=== PATIENT | male | born 1965 | race African-American/Black ===

== ENCOUNTER 2016-09-04 12:32 | Emergency (ER) | payer MEDICAID ==
[~2016-09-04] VITALS: Ht 172.7 cm; Wt 105.0 kg
[~2016-09-04 12:32] MED LIST: FAMO40TA70 PO; Folic Acid PO; LEVO500T2 PO; Multivitamins,Ther W-Minerals PO
[2016-09-04 12:36] VITALS: BP 155/120
== END 2016-09-04 17:43 | disposition left against medical advice (07) ==
LOC: ER 17:30
DX: Z53.21 Procedure and treatment not carried out due to patient leaving prior to being seen by health care provider (principal)

== ENCOUNTER 2017-02-08 07:11 | Emergency (ER) | payer MEDICAID ==
[~2017-02-08] VITALS: Ht 177.8 cm; Wt 100.0 kg
[2017-02-08] MEDS ORDERED: MORPHINE SULFATE 4 MG/ML CPJ (NOT FOR IM USE) IV STA (07:30)
[2017-02-08] MEDS ORDERED: ONDANSETRON HCL 4MG/2ML VIAL IV STA (07:30)
[2017-02-08] MEDS ORDERED: SODIUM CHLORIDE 0.9% 1,000 ML IV ONE (07:30)
[2017-02-08] MEDS ORDERED: FAMOTIDINE 20MG/2ML VIAL IV STA (07:30)
[2017-02-08] MEDS ORDERED: MIDAZOLAM HCL 2 MG/2 ML VIAL IV ONE (07:30)
[2017-02-08 08:12] LABS: BASOPHILS % 0.9 % (0.0-2.0); EOSINOPHILS % 1.8 % (0.0-5.0); HEMATOCRIT. 45.3 % (42.0-52.0); HEMOGLOBIN. 15.5 g/dL (14.0-18.0); LYMPHOCYTES % 31.4 % (20.0-50.0); MEAN CORPUSCULAR HEMOGLOBIN 31.4 pg (28.0-32.0); MEAN CORPUSCULAR VOLUME 91.5 fL (80.0-94.0); MEAN PLATELET VOLUME 9.1 fl (7.4-10.4); MONOCYTES % 8.1 % (2.0-8.0); NEUTROPHILS % 57.8 % (40.0-76.0); PLATELET 308 x1000/uL (130-400); RED BLOOD CELL COUNT 4.95 mill/uL (4.7-6.1); RED CELL DISTRIBUTION WIDTH 13.8 % (11.6-14.6)
[2017-02-08 08:26] LABS: INR 0.9; PARTIAL THROMBOPLASTIN TIME 26.4 sec (23.4-31.0); PROTHROMBIN TIME 9.5 sec (9.4-11.6)
[2017-02-08 08:32] LABS: CARBON DIOXIDE 27 mEq/L (21-32); CHLORIDE 105 mEq/L (98-107); ETHANOL BLOOD < 10 mg/dL; TROPONIN I < 0.02 ng/mL (0.00-0.04)
[2017-02-08 08:41] LABS: CREATINE KINASE 1183 IU/L (39-308)
[2017-02-08 10:23] LABS: CLARITY URINE CLEAR (CLEAR); COLOR URINE YELLOW (YELLOW); KETONES URINE NEGATIVE (NEGATIVE); LEUKOCYTE ESTERASE URINE NEGATIVE (NEGATIVE); NITRITE URINE NEGATIVE (NEGATIVE); OCCULT BLOOD URINE NEGATIVE (NEGATIVE); PROTEIN URINE NEGATIVE (NEGATIVE); SPECIFIC GRAVITY URINE 1.016 (1.005-1.030)
[2017-02-08 10:59] LABS: *AMPHETAMINES SCREEN URINE NEGATIVE (NEGATIVE); *BARBITURATES SCREEN URINE NEGATIVE (NEGATIVE); *BENZODIAZEPINES SCREEN URINE PRESUMTIVE POSITIVE (NEGATIVE); *COCAINE SCREEN URINE NEGATIVE (NEGATIVE); CANNABINOID URINE SCREEN PRESUMTIVE POSITIVE (NEGATIVE); METHADONE URINE SCREEN NEGATIVE (NEGATIVE); OPIATES URINE SCREEN PRESUMTIVE POSITIVE (NEGATIVE); PHENCYCLIDINE URINE SCREEN NEGATIVE (NEGATIVE)
[2017-02-08 12:07] VITALS: BP 136/76
== END 2017-02-08 12:16 | disposition home or self-care (01) ==
LOC: ER 08:01
DX: R07.9 Chest pain, unspecified (principal); R10.13 Epigastric pain; R11.2 Nausea with vomiting, unspecified; I10 Essential (primary) hypertension; J45.909 Unspecified asthma, uncomplicated; E78.00 Pure hypercholesterolemia, unspecified; F12.10 Cannabis abuse, uncomplicated
CPT/HCPCS: 36415; 71010; 74176; 80053; 80305; 81003; 82550; 82553; 83690; 84484; 85025; 85610; 85730; 93005; 96361; 96374; 96375; 99285; G0482; J2250; J2270; J2405; J3490; J7030; Z7610

== ENCOUNTER 2023-06-29 23:48 | Emergency (ER) | payer OTHER ==
[~2023-06-29] VITALS: Ht 175.3 cm; Wt 97.0 kg
[2023-06-30 00:04] VITALS: O2SAT 98
[2023-06-30 01:31] LABS: BASOPHILS % 0.5 % (0.0-2.0); EOSINOPHILS % 1.8 % (0.0-5.0); HEMATOCRIT. 39.4 % (42.0-52.0); HEMOGLOBIN. 13.4 g/dL (14.0-18.0); LYMPHOCYTES % 25.8 % (20.0-50.0); MEAN CORPUSCULAR HEMOGLOBIN 32.1 pg (28.0-32.0); MEAN CORPUSCULAR VOLUME 94.4 fL (80.0-94.0); MEAN PLATELET VOLUME 8.3 fl (7.4-10.4); MONOCYTES % 8.3 % (2.0-8.0); NEUTROPHILS % 63.6 % (40.0-76.0); PLATELET 289 x1000/uL (130-400); RED BLOOD CELL COUNT 4.18 mill/uL (4.7-6.1); RED CELL DISTRIBUTION WIDTH 13.5 % (11.6-14.6); WHITE BLOOD COUNT 9.4 x1000/uL (4.5-11.0)
[2023-06-30 01:34] LABS: CHLORIDE 108 mEq/L (98-107); POTASSIUM 3.7 mEq/L (3.5-5.1); SODIUM 141 mEq/L (136-145)
[2023-06-30 01:35] LABS: CALCIUM 9.9 mg/dL (8.7-10.4); CARBON DIOXIDE 28 mEq/L (21-32)
[2023-06-30 01:40] LABS: CREATININE 1.5 mg/dL (0.6-1.3); GLUCOSE 102 mg/dL (70-105); UREA NITROGEN BLOOD 17 mg/dL (9-23)
[2023-06-30 01:42] LABS: ALANINE AMINOTRANSFERASE 20 IU/L (10-49); ALBUMIN 4.2 g/dL (3.2-4.8); ASPARTATE AMINOTRANSFERASE 36 IU/L (<34); BILIRUBIN DIRECT 0.2 mg/dL (<=3.0); BILIRUBIN TOTAL 0.9 mg/dL (0.1-1.0); PROTEIN TOTAL 7.2 g/dL (6.0-8.3)
[2023-06-30 01:43] LABS: ETHANOL BLOOD < 10 mg/dL (<10)
[2023-06-30] MEDS: FAMOTIDINE 20MG TABLET PO ONE (07:10)
[2023-06-30] MEDS: MAGNESIUM/ALUMINUM HYDROXIDE/SIMETHICONE 30ML UDC PO STA (07:10)
[2023-06-30 12:08] LABS: CLARITY URINE CLEAR (CLEAR); COLOR URINE YELLOW (YELLOW); GLUCOSE URINE NEGATIVE (NEGATIVE); KETONES URINE 2+ (NEGATIVE); LEUKOCYTE ESTERASE URINE NEGATIVE (NEGATIVE); NITRITE URINE NEGATIVE (NEGATIVE); OCCULT BLOOD URINE 1+ (NEGATIVE); PROTEIN URINE 1+ (NEGATIVE); SPECIFIC GRAVITY URINE 1.024 (1.005-1.030)
[2023-06-30] MEDS ORDERED: FAMO-135 MT (12:26)
[2023-06-30 12:28] LABS: BACTERIA URINE NONE SEEN; SQUAMOUS EPITHELIAL CELL URINE RARE /lpf (RARE/1+); WBC URINE 0-2 /hpf (0-2); YEAST URINE NONE SEEN
[2023-06-30 12:35] LABS: *AMPHETAMINES SCREEN URINE NEGATIVE (NEGATIVE); *BARBITURATES SCREEN URINE NEGATIVE (NEGATIVE); *BENZODIAZEPINES SCREEN URINE NEGATIVE (NEGATIVE); *COCAINE SCREEN URINE NEGATIVE (NEGATIVE); METHADONE URINE SCREEN NEGATIVE (NEGATIVE); OPIATES URINE SCREEN NEGATIVE (NEGATIVE)
[2023-06-30 12:36] LABS: CANNABINOID URINE SCREEN PRESUMPTIVE POSITIVE (NEGATIVE); ECSTASY MDMA SCREEN URINE NEGATIVE (NEGATIVE); PHENCYCLIDINE URINE SCREEN PRESUMTIVE POSITIVE (NEGATIVE)
[2023-06-30 14:02] VITALS: BP 138/78; PULSE 78; RESP 16; TEMP 98
== END 2023-06-30 14:02 | disposition home or self-care (01) ==
LOC: ER 23:48
DX: N17.9 Acute kidney failure, unspecified (principal); R10.816 Epigastric abdominal tenderness; F12.90 Cannabis use, unspecified, uncomplicated; J45.909 Unspecified asthma, uncomplicated; E78.00 Pure hypercholesterolemia, unspecified; I10 Essential (primary) hypertension; Z98.890 Other specified postprocedural states
CPT/HCPCS: 36415; 74176; 80048; 80076; 80305; 80320; 81003; 85025; 99284; G0480

== ENCOUNTER 2024-04-02 13:48 | Emergency (ER) | payer OTHER ==
[~2024-04-02] VITALS: Ht 172.7 cm; Wt 100.0 kg
[~2024-04-02 13:48] MED LIST changes: +FAMO-135 MT
[2024-04-02 13:57] VITALS: O2SAT 98
[2024-04-02] MEDS ORDERED: METHOCARBAMOL 500MG TABLET PO ONE (18:00)
[2024-04-02] MEDS ORDERED: ACETAMINOPHEN 325MG TABLET PO ONE (18:00)
[2024-04-02] MEDS ORDERED: METH-653 MT (19:09)
[2024-04-02] MEDS ORDERED: IBUP-2029 MT (19:09)
[2024-04-02] MEDS: ACETAMINOPHEN 325MG TABLET PO NR (20:02)
[2024-04-02] MEDS: METHOCARBAMOL 500MG TABLET PO NR (20:03)
[2024-04-02 21:23] VITALS: BP 168/95; PULSE 69; RESP 18; TEMP 36.8; O2SAT 99
== END 2024-04-02 22:11 | disposition home or self-care (01) ==
LOC: ER 13:48
DX: S06.0XAA Concussion with loss of consciousness status unknown, initial encounter (principal); F12.10 Cannabis abuse, uncomplicated; J45.909 Unspecified asthma, uncomplicated; E78.00 Pure hypercholesterolemia, unspecified; I10 Essential (primary) hypertension; Z98.890 Other specified postprocedural states; Z79.899 Other long term (current) drug therapy; W18.30XA Fall on same level, unspecified, initial encounter; Y93.89 Activity, other specified; Y92.89 Other specified places as the place of occurrence of the external cause; Y99.8 Other external cause status
CPT/HCPCS: 71045; 99284

== ENCOUNTER 2024-07-16 10:13 | Emergency (ER) | payer OTHER ==
[~2024-07-16] VITALS: Ht 177.8 cm; Wt 87.0 kg
[~2024-07-16 10:13] MED LIST changes: +IBUP-2029 MT; +METH-653 MT
[2024-07-16 10:15] VITALS: O2SAT 99
[2024-07-16] MEDS: SODIUM CHLORIDE 0.9% 1,000 ML IV ONE (10:58)
[2024-07-16 11:07] LABS: BASOPHILS % 1.1 % (0.0-2.0); EOSINOPHILS % 2.5 % (0.0-5.0); HEMATOCRIT. 42.1 % (42.0-52.0); HEMOGLOBIN. 14.2 g/dL (14.0-18.0); LYMPHOCYTES % 31.5 % (20.0-50.0); MEAN CORPUSCULAR HEMOGLOBIN 31.8 pg (28.0-32.0); MEAN CORPUSCULAR HGB CONC 33.8 g/dL (31.0-37.0); MEAN PLATELET VOLUME 8.6 fl (7.4-10.4); MONOCYTES % 8.1 % (2.0-8.0); NEUTROPHILS % 56.8 % (40.0-76.0); PLATELET 293 x1000/uL (130-400); RED BLOOD CELL COUNT 4.48 mill/uL (4.7-6.1); WHITE BLOOD COUNT 9.4 x1000/uL (4.5-11.0)
[2024-07-16 11:16] LABS: CHLORIDE 109 mEq/L (98-107); SODIUM 141 mEq/L (136-145)
[2024-07-16 11:17] LABS: CALCIUM 8.9 mg/dL (8.7-10.4); CARBON DIOXIDE 27 mEq/L (21-32)
[2024-07-16 11:22] LABS: CREATININE 1.5 mg/dL (0.6-1.3); GLUCOSE 101 mg/dL (70-105); UREA NITROGEN BLOOD 19 mg/dL (9-23)
[2024-07-16 11:23] LABS: TROPONIN I HIGH SENSITIVITY 4 ng/L (3.0-53)
[2024-07-16] MEDS: MECLIZINE 25MG TABLET PO ONE (11:31)
[2024-07-16] MEDS: HYDRALAZINE 20MG/ML VIAL IV ONE (13:57)
[2024-07-16] MEDS ORDERED: ONDA4TAB50 MT (16:33)
[2024-07-16] MEDS ORDERED: AMLO-905 MT (16:33)
[2024-07-16] MEDS ORDERED: MECL-299 MT (16:33)
[2024-07-16] MEDS: CLONIDINE 0.1MG TABLET PO ONE (17:42)
[2024-07-16 18:16] VITALS: BP 176/95; PULSE 70; RESP 12; TEMP 36.8; O2SAT 99
== END 2024-07-16 18:22 | disposition home or self-care (01) ==
LOC: ER 10:13
DX: R42 Dizziness and giddiness (principal); I10 Essential (primary) hypertension; F12.10 Cannabis abuse, uncomplicated; J45.909 Unspecified asthma, uncomplicated; E78.00 Pure hypercholesterolemia, unspecified; Z91.018 Allergy to other foods; Z91.010 Allergy to peanuts; Z79.899 Other long term (current) drug therapy; Z98.890 Other specified postprocedural states
CPT/HCPCS: 80048; 85025; 84484; 36415; 70450; 93005; 96361; 96374; 99285; J8597; J0360; J7030; Z7610 ×2; A4606

== ENCOUNTER 2024-11-13 07:09 | Emergency (ER) | payer OTHER ==
[~2024-11-13] VITALS: Ht 172.7 cm; Wt 93.5 kg
[~2024-11-13 07:09] MED LIST changes: +AMLO-905 MT; +IBUP-1455 MT; -IBUP-2029 MT; +MECL-299 MT; +ONDA4TAB50 MT
[2024-11-13 07:13] VITALS: O2SAT 98
[2024-11-13] MEDS: ACETAMINOPHEN WITH CODEINE 300/30MG TABLET PO ONE (08:20)
[2024-11-13] MEDS ORDERED: T3 PO (08:30)
[2024-11-13] MEDS ORDERED: IBUP-2028 PO (08:30)
[2024-11-13 09:01] VITALS: BP 158/73; PULSE 57; RESP 18; TEMP 36.7; O2SAT 99
== END 2024-11-13 08:54 | disposition home or self-care (01) ==
LOC: ER 07:09
DX: M54.40 Lumbago with sciatica, unspecified side (principal); E78.00 Pure hypercholesterolemia, unspecified; I10 Essential (primary) hypertension; J45.909 Unspecified asthma, uncomplicated; M19.041 Primary osteoarthritis, right hand; M19.042 Primary osteoarthritis, left hand; Z79.1 Long term (current) use of non-steroidal anti-inflammatories (NSAID); Z79.899 Other long term (current) drug therapy; Z91.018 Allergy to other foods; Z91.81 History of falling
CPT/HCPCS: 73502; 72100; 99284; Z7610 ×2

== ENCOUNTER 2025-01-11 09:16 | Emergency (ER) | payer OTHER ==
[~2025-01-11 09:16] MED LIST changes: +IBUP-2028 PO; +T3 PO
[2025-01-11 09:39] VITALS: PULSE 79; RESP 18; O2SAT 100
== END 2025-01-11 12:16 | disposition left against medical advice (07) ==
LOC: ER 09:16
DX: M25.559 Pain in unspecified hip (principal)
CPT/HCPCS: 99281